=== PATIENT | female | born 1990 | race Two or more races ===

== ENCOUNTER 2024-12-18 14:23 | Emergency (ER) | payer OTHER ==
[2024-12-18 14:31] VITALS: BP 139/82; PULSE 91; RESP 16; TEMP 98.5; BMI 29.1
[2024-12-18] MEDS ORDERED: LIDOCAINE 5% TOPICAL PATCH ONE (15:15)
[2024-12-18] MEDS ORDERED: IBUPROFEN 400 MG TABLET (FP) PO ONE ×2 (15:15→15:21)
[2024-12-18] MEDS: LIDOCAINE 5% TOPICAL PATCH TP ONE (15:29)
[2024-12-18] MEDS: IBUPROFEN 400 MG TABLET (FP) PO ONE (15:30)
[2024-12-18] MEDS ORDERED: ACETAMINOPHEN 325 MG TABLET (FP) ONE (15:51)
[2024-12-18] MEDS: ACETAMINOPHEN 325 MG TABLET (FP) PO ONE (15:56)
[2024-12-18] MEDS ORDERED: LIDOCAINE PATCH REMOVAL MC SCH (22:00)
== END 2024-12-18 16:17 | disposition home or self-care (01) ==
LOC: JER 14:23
DX: O09.521 Supervision of elderly multigravida, first trimester (principal); O26.891 Other specified pregnancy related conditions, first trimester; M54.50 Low back pain, unspecified; Z3A.01 Less than 8 weeks gestation of pregnancy
CPT/HCPCS: 99283-25